=== PATIENT | female | born 1965 | race Caucasian/White ===

== ENCOUNTER 2021-01-02 21:40 | Emergency (ER) | payer OTHER, SELFPAY ==
[2021-01-02 21:49] VITALS: BP 134/64; PULSE 67; RESP 18; TEMP 35.7; O2SAT 98
[2021-01-02] MEDS: predniSONE 20 MG TABLET 60 MG PO (22:21)
[2021-01-02] MEDS: FAMOTIDINE 20 MG TABLET PO (22:21)
--- NOTE | 2021-01-02 22:27 | ED.GENADULT ---
HPI - General Adult General Chief complaint: Skin/Abscess/Foreign Body Stated complaint: Rash since 430pm Time Seen by Provider: 01/02/21 22:07 Source: patient Mode of arrival: ambulatory Limitations: no limitations History of Present Illness HPI narrative: Patient is a 55-year-old female who presents to emergency department for evaluation of rash that developed today around 4:00 noting hives over the torso and extremities took an antihistamine and is now having improvement patient denies any known exposures or similar occurrence in the past is visiting from out of town and on arrival notes minimal discomfort Related Data Allergies Allergy/AdvReac Type Severity Reaction Status Date / Time No Known Allergies Allergy Verified 01/02/21 21:51 Review of Systems Review of Systems: All systems reviewed & are unremarkable except as noted in HPI and below PMFSH Social History Social History Gender identity (if verbalized by the patient): Female Sexual Orientation (if Verbalized by the Patient): Straight or Heterosexual Exam Narrative: Exam Narrative: GENERAL: Well-appearing, well-nourished, and in no acute distress. HEAD: Normocephalic, atraumatic. EYES: PERRLA and EOMI. ENT: Nares clear, no rhinorrhea or epistaxis. Mucous membranes moist. No angioedema in the oropharynx NECK: Supple. No adenopathy or masses. No stridor CHEST: Clear to auscultation. No respiratory distress. No wheezes rales or rhonchi HEART: Regular rate and rhythm. No murmur heard. EXTREMITIES: Normal range of motion. No edema. SKIN: Warm, dry, finding urticaria over the extremities and torso NEURO: No focal deficits. Alert and oriented x3. PSYCH: Normal mood and affect. Course Course Emergency Course: Patient in the room no distress aware of case findings treatment plan and diagnosis agreeing to follow-up as instructed no concerning findings at this time will be discharged home with plans for outpatient follow-up Vital Signs Vital signs: Vital Signs Temperature 96.2 F L 01/02/21 21:49 Pulse Rate 67 01/02/21 21:49 Respiratory Rate 18 01/02/21 21:49 Blood Pressure 134/64 01/02/21 21:49 Pulse Oximetry 98 01/02/21 21:49 Temperature 96.2 F L 01/02/21 21:49 Pulse Rate 67 01/02/21 21:49 Respiratory Rate 18 01/02/21 21:49 Blood Pressure 134/64 01/02/21 21:49 Pulse Oximetry 98 01/02/21 21:49 Medical Decision Making MDM Narrative Medical decision making narrative: Patient with urticaria of unknown origin no distress ABCs and vital signs intact and stable will be discharged home treated medically provided with reasons to return Vital Signs Vital Signs: Vital Signs Temperature 96.2 F L 01/02/21 21:49 Pulse Rate 67 01/02/21 21:49 Respiratory Rate 18 01/02/21 21:49 Blood Pressure 134/64 01/02/21 21:49 Pulse Oximetry 98 01/02/21 21:49 Temperature 96.2 F L 01/02/21 21:49 Pulse Rate 67 01/02/21 21:49 Respiratory Rate 18 01/02/21 21:49 Blood Pressure 134/64 01/02/21 21:49 Pulse Oximetry 98 01/02/21 21:49 Discharge Plan Discharge Clinical Impression: Urticaria Patient Disposition: Home, Self-Care Condition: Stable Instructions: Antibiotic Form, Urticaria (ED) Additional Instructions: Follow up with your primary care provider within 1-2 days to set up for reevaluation. go to ER for shortness of breath, difficulty breathing, chest pain, fever/chills, weakness, nauseau/vomitting, tongue swelling or throat tightening etc. or any other concerns. Avoid heat Take any prescribed medications as directed. Stay well-hydrated If you do not have a drug allergy to tylenol or motrin and can tolerate it then take tylenol or motrin as needed for discomfort/pain. Prescriptions: New famotidine [Pepcid] 20 mg tablet 20 mg PO BID Qty: 14 RF: 0 loratadine [Claritin] 10 mg tablet 10 mg PO DAILY PRN (Reason: allergy s
== END 2021-01-02 23:02 | disposition home or self-care (01) ==
PROVIDERS: Emergency Provider Emergency Medicine
DX: L50.9 Urticaria, unspecified (principal)
CPT/HCPCS: 99283; A9270; J7512